=== PATIENT | female | born 1960 | race Caucasian/White ===

== ENCOUNTER 2018-07-27 02:25 | Inpatient (IN) | payer OTHER ==
[2018-07-27] VITALS (8 sets, daily range): BP systolic 117–190; BP diastolic 56–97
[~2018-07-27] VITALS: Ht 160 cm; Wt 67.4 kg
--- NOTE | ~2018-07-27 | EKG ---
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 07/27/18 0835 0234 0234 Karel Greco MD, [facility] /EPI
--- NOTE | ~2018-07-27 | EKG ---
[address] [place] [address] ELECTROCARDIOGRAM REPORT Name: ONEL FUENTES Room #: 214-P ADM IN M.R.#: [id number] Admission: 07/27/18 Attend Phys: Lucius Wagner MD Discharge: Date of : 58 Report #: [id number] THIS REPORT FOR: //name// [facility] Test Date: 2018-07-27 Test Time: 07:09:01 Pat Name: ONEL FUENTES Department: Room: 214 P Gender: F Emergency Nurse: JOSE DANIEL : 1960 Requested By: Yun Szymanski Order Number: [id number] MD: Karel Greco Measurements Intervals [place] Rate: 85 P: 55 AR: 148 QRS: -37 QRSD: 135 T: 4 QT: 407 QTc: 484 Interpretive Statements Sinus rhythm Right bundle branch block Compared to ECG 05/28/2008 09:27:17 No significant change was found Electronically Signed On 07-27-2018 8:39:05 CDT by Karel Greco [email or web address] <ELECTRONICALLY SIGNED> By: Karel Greco MD, [facility] 07/27/18 0839 8 8 Karel Greco MD, [facility] /EPI
--- NOTE | ~2018-07-27 | EKG ---
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1960 Requested By: Trace Bell Order Number: [id number] MD: Thai Aleman Measurements Intervals [place] Rate: 63 P: 73 UT: 203 QRS: -66 QRSD: 146 T: 56 QT: 505 QTc: 518 Interpretive Statements Sinus rhythm Borderline prolonged UT interval Left bundle branch block Compared to ECG 07/27/2018 07:09:01 Left bundle-branch block now present Right bundle-branch block no longer present Electronically Signed On 07-27-2018 14:08:48 CDT by Thai Aleman [email or web address] <ELECTRONICALLY SIGNED> By: Thai Aleman MD 07/27/18 1408 1225 1225 Thai Aleman MD /EPI
--- NOTE | ~2018-07-27 | 2DMMODE ---
[facility] [address] [place] [address] 2 D/M-MODE ECHOCARDIOGRAM Name: ONEL FUENTES Room #: 214-P [facility] IN ..#: [id number] Admission: 07/27/18 Attend Phys: Lucius Wagner, Discharge: Date of : 58 Date of Service: 07/27/18 1149 Report #: [id number] THIS REPORT FOR: //name// APPROVED REPORT Study performed: 07/27/2018 10:50:58 EXAM: Comprehensive 2D, Doppler, and color-flow Echocardiogram Patient Location: Bedside Room #: 214 Status: routine BSA: 1.72 HR: 78 bpm BP: 117/56 mmHg Rhythm: NSR Other Information Study Quality: Adequate Indications CAD Chest Pain Hypertension/HDD 2D Dimensions RVDd: 28.48 mm IVSd: 9.50 (7-11mm) LVOT Diam: 18.96 (18-24mm) LVDd: 36.85 mm PWd: 8.60 (7-11mm) Ascending Ao: 22.34 (22-36mm) LVDs: 28.95 (25-40mm) Aortic Root: 26.45 mm IVC: 14.00 mm Volumes Left Atrial Volume (Systole) Single Plane 4CH: 40.85 mL Single Plane 2CH: 25.36 mL LA ESV Index: 20.00 mL/m2 Aortic Valve AoV Peak Hermann.: 1.17 m/s AO Peak Gr.: 5.52 mmHg LVOT Max P.51 mmHg LVOT Max V: 0.94 m/s DEB Vmax: 2.25 cm2 Mitral Valve E/A Ratio: 0.8 [facility] [address] [place] [address] 2 D/M-MODE ECHOCARDIOGRAM Name: ONEL FUENTES Room #: 214-P [facility]#: [id number] Admission: 07/27/18 Attend Phys: Lucius Wagner, Discharge: Date of : 58 Date of Service: 07/27/18 1149 Report #: [id number] MV Decel. Time: 126.62 ms MV E Max Hermann.: 0.73 m/s MV A Hermann.: 0.97 m/s MV PHT: 36.72 ms IVRT: 110.73 ms Pulmonary Valve PV Peak Hermann.: 0.88 m/s PV Peak Gr.: 3.11 mmHg Pulmonary Vein P Vein S: 0.63 m/s P Vein A: 0.31 m/s P Vein D: 0.39 m/s P Vein A Dur.: 124.6 msec P Vein S/D Ratio: 1.62 Left Ventricle The left ventricle is normal size. There is normal LV segmental wall motion. There is normal left ventricular wall thickness. The left ventricular systolic function is normal. The left ventricular ejection fraction is within the normal range. LVEF is 55-60%. Grade I - abnormal relaxation pattern. Right Ventricle The right ventricle is normal size. The right ventricular systolic function is normal. Atria The left atrium size is normal. The right atrium size is normal. Aortic Valve The aortic valve is normal in structure. No aortic regurgitation is present. There is no aortic valvular stenosis. Mitral Valve The mitral valve is normal in structure. Trace mitral regurgitation. No evidence of mitral valve stenosis. Tricuspid Valve The tricuspid valve is normal in structure. There is no tricuspid valve regurgitation noted. Pulmonic Valve The pulmonary valve is normal in structure. There is no pulmonic valvular regurgitation. Great Vessels [facility] [address] [place] [address] 2 D/M-MODE ECHOCARDIOGRAM Name: ONEL FUENTES Room #: 214-P [facility] IN ..#: [id number] Admission: 07/27/18 Attend Phys: Lucius Wagner, Discharge: Date of : 58 Date of Service: 07/27/18 1149 Report #: [id number] The aortic root is normal in size. IVC is normal in size and collapses >50% with inspiration. Pericardium There is no pericardial effusion. <Conclusion> The left ventricle is normal size. LVEF is 55-60%. The aortic valve is normal in structure. The mitral valve is normal in structure. Trace mitral regurgitation. The tricuspid valve is normal in structure. The pulmonary valve is normal in structure. There is no pericardial effusion. <ELECTRONICALLY SIGNED> By: Trace Bell MD 07/27/18 1149 1149 114 Trace Bell MD /INF
--- NOTE | ~2018-07-27 | EKG ---
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
[~2018-07-27 02:25] MED LIST: BACTRIM DS TAB1 EACH PO; BACTROBAN NASAL1 GM NS; CELEXA 20 MG TA20 M1 PO; DOXYCYCLINE 10100 MG PO; HYDROXYZINE HCL25 M1 PO; NITROQUICK0.4 MG SL; OXCARBAZEPINE600 MG PO; PREDNISONE 20 M20 M1 PO; SIMVASTATIN80 MG PO; TOPROL XL25 MG PO; ZESTRIL10 MG PO
[2018-07-27 02:53] LABS: ABSOLUTE NEUTROPHILS 3.5 thou/uL (1.4-8.2); BASOPHILS 2.4 % (0.0-2.0); EOSINOPHILS 4.5 % (0.0-3.0); HEMATOCRIT 42.4 % (37.0-47.0); HEMOGLOBIN 14.4 gm/dL (12.0-15.0); LYMPHOCYTES 42.8 % (24.0-44.0); MCH 30.2 pg (26.0-34.0); MCHC 33.9 g/dL (28.0-37.0); MCV 88.9 fL (80.0-100.0); MONOCYTES 7.2 % (1.0-8.0); PLATELET COUNT 400 thou/uL (150-400); POLYS 43.1 % (36.0-66.0); RBC 4.77 mil/uL (4.20-5.00); WBC 8.2 thou/uL (4.0-11.0)
[2018-07-27 03:02] LABS: ANION GAP 13 mmol/L (7-16); BUN 9 mg/dL (7-18); CALCIUM 8.7 mg/dL (8.5-10.1); CHLORIDE 103 mmol/L (98-107); CO2 24 mmol/L (21-32); CREATININE 0.7 mg/dL (0.6-1.0); GLUCOSE 114 mg/dL (74-106); POTASSIUM 3.6 mmol/L (3.5-5.1); SODIUM 140 mmol/L (136-145)
[2018-07-27 03:09] LABS: ALBUMIN 3.7 g/dL (3.4-5.0); SGOT 32 U/L (15-37); SGPT 47 U/L (30-65); TOTAL BILIRUBIN 0.3 mg/dL (<0.1-1.0); TOTAL PROTEIN 7.7 g/dL (6.4-8.2); TROPONIN-I <0.06 ng/mL (<0.06)
[2018-07-27 08:59] LABS: CHOLESTEROL 213 mg/dL (<200); HDL CHOLESTEROL 45 mg/dL (>40); LDL CHOLESTEROL 143 mg/dL (<100); TC:HDL 4.7 Ratio (Not establshd); TRIGLYCERIDE 127 mg/dL (<150); VLDL 25 mg/dL (<40)
[2018-07-27 23:07] LABS: GLYCOHEMOGLOBIN (HGB A1C) 5.7 % (4.8-5.6)
[2018-07-28 04:37] LABS: HEMATOCRIT 41.1 % (37.0-47.0); HEMOGLOBIN 13.9 gm/dL (12.0-15.0); MCH 29.9 pg (26.0-34.0); MCHC 33.8 g/dL (28.0-37.0); MCV 88.7 fL (80.0-100.0); RBC 4.63 mil/uL (4.20-5.00); RDW 13.4 % (10.5-14.5); WBC 9.8 thou/uL (4.0-11.0)
[2018-07-28 04:42] VITALS: BP 130/70
[2018-07-28 04:57] LABS: ALBUMIN 3.3 g/dL (3.4-5.0); CALCIUM 9.2 mg/dL (8.5-10.1); CREATININE 0.6 mg/dL (0.6-1.0); POTASSIUM 3.9 mmol/L (3.5-5.1); TOTAL BILIRUBIN 0.5 mg/dL (<0.1-1.0); TOTAL PROTEIN 7.4 g/dL (6.4-8.2)
[2018-07-28 07:47] VITALS: BP 103/47
[2018-07-28] MEDS ORDERED: CRESTOR40 MG PO ×2 (08:52→11:17)
[2018-07-28] MEDS ORDERED: ASPIRIN325 PO (08:52)
[2018-07-28] MEDS ORDERED: NITROGLYCERIN0.4 MG SUBLING ×2 (08:52→11:17)
[2018-07-28] MEDS ORDERED: EFFIENT10 MG PO (08:52)
[2018-07-28] MEDS ORDERED: TOPROL XL25 MG PO ×2 (08:52→11:17)
[2018-07-28 11:11] VITALS: BP 141/74
[2018-07-28] MEDS ORDERED: NICOTINE TRANSD14 M1 TRANSDERM (11:16)
[2018-07-28] MEDS ORDERED: PLAVIX 75 MG TA75 M1 PO (11:16)
[2018-07-28] MEDS ORDERED: ASPIR 8181 MG PO (11:24)
[2018-07-28 11:31] VITALS: BP 141/74
[2018-07-28] MEDS ORDERED: LISINOPRIL2.5 MG PO (11:58)
== END 2018-07-28 13:30 | disposition home or self-care (01) | DRG 247 ==
LOC: ER 02:25 → EROBS 03:28 → 2N 04:00
PROVIDERS: Internal Medicine; Nurse Practitioner Acute Care; Student in an Organized Health Care Education/Training Program
PROC: B2111ZZ Fluoroscopy of Multiple Coronary Arteries using Low Osmolar Contrast (ICD-10-PCS; principal; 2018-07-27)
PROC: 4A023N7 Measurement of Cardiac Sampling and Pressure, Left Heart, Percutaneous Approach (ICD-10-PCS; principal; 2018-07-27)
PROC: 027034Z Dilation of Coronary Artery, One Artery with Drug-eluting Intraluminal Device, Percutaneous Approach (ICD-10-PCS; principal; 2018-07-27)
DX: T82.855A Stenosis of coronary artery stent, initial encounter (principal); I25.110 Atherosclerotic heart disease of native coronary artery with unstable angina pectoris; E78.5 Hyperlipidemia, unspecified; F17.210 Nicotine dependence, cigarettes, uncomplicated; I73.9 Peripheral vascular disease, unspecified; I16.0 Hypertensive urgency; I10 Essential (primary) hypertension; Z95.820 Peripheral vascular angioplasty status with implants and grafts; Y83.8 Other surgical procedures as the cause of abnormal reaction of the patient, or of later complication, without mention of misadventure at the time of the procedure; Y92.89 Other specified places as the place of occurrence of the external cause; Z88.6 Allergy status to analgesic agent; Z82.49 Family history of ischemic heart disease and other diseases of the circulatory system; Z82.3 Family history of stroke; Z87.442 Personal history of urinary calculi; Z95.5 Presence of coronary angioplasty implant and graft; Z79.82 Long term (current) use of aspirin; Z79.899 Other long term (current) drug therapy; Z23 Encounter for immunization
CPT/HCPCS: 10081

== ENCOUNTER 2018-08-01 18:43 | Emergency (ER) | payer OTHER ==
[~2018-08-01] VITALS: Ht 157.5 cm; Wt 65.8 kg
--- NOTE | ~2018-08-01 | EKG ---
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1960 Requested By: Misael Amanda Order Number: [id number] MD: Thai Aleman Measurements Intervals [place] Rate: 100 P: 48 PA: 158 QRS: -44 QRSD: 132 T: 18 QT: 388 QTc: 501 Interpretive Statements Sinus tachycardia RBBB and LAFB Compared to ECG 07/27/2018 12:25:22 Left anterior fascicular block now present Right bundle-branch block now present Sinus rhythm no longer present Left bundle-branch block no longer present Electronically Signed On 08-02-2018 8:35:05 CDT by Thai Aleman [email or web address] <ELECTRONICALLY SIGNED> By: Thai Aleman MD 08/02/18 0835 00 00 Thai Aleman MD /EPI
[~2018-08-01 18:43] MED LIST changes: +ASPIR 8181 MG PO; +ASPIRIN325 PO; +CRESTOR40 MG PO; +EFFIENT10 MG PO; +LISINOPRIL2.5 MG PO; +NICOTINE TRANSD14 M1 TRANSDERM; +NITROGLYCERIN0.4 MG SUBLING; +PLAVIX 75 MG TA75 M1 PO
[2018-08-01] MEDS ORDERED: EFFIENT10 MG PO (19:21)
[2018-08-01 19:29] LABS: URINE BILIRUBIN NEGATIVE (Negative); URINE BLOOD NEGATIVE (Negative); URINE CLARITY CLEAR; URINE COLOR YELLOW; URINE GLUCOSE-RANDOM* NEGATIVE (Negative); URINE KETONES NEGATIVE (Negative); URINE LEUKOCYTES-REFLEX NEGATIVE (Negative); URINE NITRITE-REFLEX NEGATIVE (Negative); URINE PROTEIN (DIPSTICK) NEGATIVE (Negative)
[2018-08-01 19:32] LABS: ABSOLUTE NEUTROPHILS 5.8 thou/uL (1.4-8.2); BASOPHILS 0.3 % (0.0-2.0); EOSINOPHILS 3.5 % (0.0-3.0); HEMATOCRIT 39.1 % (37.0-47.0); HEMOGLOBIN 13.5 gm/dL (12.0-15.0); LYMPHOCYTES 31.7 % (24.0-44.0); MCH 30.3 pg (26.0-34.0); MCHC 34.6 g/dL (28.0-37.0); MCV 87.6 fL (80.0-100.0); MONOCYTES 7.5 % (1.0-8.0); PLATELET COUNT 395 thou/uL (150-400); RBC 4.47 mil/uL (4.20-5.00); RDW 12.8 % (10.5-14.5); WBC 10.2 thou/uL (4.0-11.0)
[2018-08-01 19:54] LABS: ANION GAP 10 mmol/L (7-16); BUN 10 mg/dL (7-18); CALCIUM 9.3 mg/dL (8.5-10.1); CHLORIDE 104 mmol/L (98-107); CO2 27 mmol/L (21-32); CREATININE 0.7 mg/dL (0.6-1.0); GLUCOSE 122 mg/dL (74-106); POTASSIUM 3.4 mmol/L (3.5-5.1); SODIUM 141 mmol/L (136-145)
[2018-08-01 20:00] LABS: ALBUMIN 3.4 g/dL (3.4-5.0); SGOT 21 U/L (15-37); SGPT 31 U/L (30-65); TOTAL BILIRUBIN 0.3 mg/dL (<0.1-1.0); TOTAL PROTEIN 7.5 g/dL (6.4-8.2); TROPONIN-I <0.06 ng/mL (<0.06)
[2018-08-01] MEDS ORDERED: ANTIVERT25 MG PO (22:16)
[2018-08-01] MEDS ORDERED: ZOFRAN ODT4 MG DISSOLVE (22:16)
[2018-08-01] MEDS ORDERED: ATIVAN0.5 MG PO (22:19)
[2018-08-01 22:49] VITALS: BP 150/82
== END 2018-08-01 22:50 | disposition home or self-care (01) ==
LOC: ER 18:43
PROVIDERS: Emergency Medicine
DX: I25.10 Atherosclerotic heart disease of native coronary artery without angina pectoris (principal); R55 Syncope and collapse; F41.9 Anxiety disorder, unspecified; M79.81 Nontraumatic hematoma of soft tissue; F17.210 Nicotine dependence, cigarettes, uncomplicated; E78.5 Hyperlipidemia, unspecified; I10 Essential (primary) hypertension; Z88.5 Allergy status to narcotic agent; Z98.61 Coronary angioplasty status

== ENCOUNTER → 2019-07-15 | Outpatient (CLI) | payer OTHER ==
[~2019-07-15] VITALS: Ht 160 cm; Wt 68.0 kg
[~2019-07-15] MED LIST changes: +ANTIVERT25 MG PO; +ATIVAN0.5 MG PO; +CREON DR 24,001 EACH PO; +LEXAPRO 10 MG T10 M1 PO; +LOPRESSOR25 PO; +ZOFRAN ODT4 MG DISSOLVE
--- NOTE | 2019-07-17 11:07 | PATH ---
[facility] [address] [address] PATHOLOGY RPT PROCEDURE Name: ZAINAB AYOUB Room #: REG [facility] Cory.#: [id number] Admission: 07/15/19 Date of : 58 Discharge: Report #: [id number] Path Case #: [id number] [facility] Accession Number: [id number] . 01 Material submitted: . PART A: small bowel - SMALL BOWEL BX PART B: colon - RANDOM RIGHT COLON BX. Modifiers: right PART C: colon - RANDOM LEFT COLON BX. Modifiers: left PART D: sigmoid colon - SIGMOID COLON POLYP . 01 Clinical history: . GERD, diarrhea, nausea Rule out celiac, rule out microscopic colitis . 02 Diagnosis: A. Small bowel mucosa, small bowel rule out celiac, endoscopic biopsy: - Moderate acute and chronic duodenitis associated with fundic-type metaplasia and mild villous blunting, compatible with active peptic duodenitis. . B. Large intestine mucosa, random right colon, endoscopic biopsy: - Focal acute cryptitis associated with apoptotic bodies. - Negative for features suggestive of microscopic colitis. - Negative for dysplasia or malignancy. . C. Large intestinal mucosa, random left colon, endoscopic biopsy: - Mild focal acute colitis. - Negative for features suggestive of microscopic colitis. - Negative for dysplasia or malignancy. . D. Polyp, sigmoid colon polyp, endoscopic biopsy: - Compatible with hyperplastic polyp and a lymphoid aggregate. - Negative for dysplasia. . 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 02 Comment: Sections of the colonic mucosa designated "random right colon and random left colon" show focal cryptitis, and a moderately cellular lamina propria composed predominantly of lymphocytes and plasma cells and occasional eosinophils. Surface ulceration is not identified. There are no crypt abscesses, granulomas or viral inclusions. The process affects all the fragments with a similar intensity. Given the description, the differential diagnosis includes focal mild acute self-limited episode of colitis, infectious-type of colitis, reaction to bowel preparation, medication/drug-induced colitis, as well as acute diverticulitis. Please [address] [address] PATHOLOGY RPT PROCEDURE Name: ZAINAB AYOUB Room #: REG TAHIRA Hong#: [id number] Admission: 07/15/19 Date of : 58 Discharge: Report #: [id number] Path Case #: [id number] correlate with clinical as well as endoscopic findings. (IUV:olaf; 07/16/2019) . 02 Electronically signed: . Thea Vallejo MD, Pathologist NPI- [id number] . 01 Gross description: . A. Received in formalin labeled "Zainab Ayoub, small bowel BX," are 4 segments of urban soft tissue measuring 1.1 x 0.9 x 0.3 cm in aggregate dimensions and ranging from 0.2 to 0.5 cm in maximum dimension. The specimen is submitted entirely in cassette A1. . B. Received in formalin labeled "Zainab Ayoub, random right colon BX," are 4 segments of urban soft tissue measuring 1.1 x 0.8 x 0.3 cm in aggregate dimensions and ranging from 0.3 to 0.5 cm in maximum dimension. The specimen is submitted entirely in cassette B1. . C. Received in formalin labeled "Zainab Ayoub, random left colon BX," are 4 segments of urban soft tissue measuring 1.1 x 0.9 x 0.3 cm in aggregate dimensions and ranging from 0.4 to 0.5 cm in maximum dimension. The specimen is submitted entirely in cassette C1. . D. Received in formalin labeled "Zainab Ayoub, sigmoid colon polyp," is a single segment of urban soft tissue measuring 0.8 cm in maximum dimension. The specimen is entirely submitted in cassette D1. (TSD; 07/15/2019) TOB/TOB 07/16/2019 1508 Local . 02 Pathologist provided ICD-10: K29.80, K29.80, K62.89, K63.5 . 02 CPT . 461057, 551459, 175729, 037323 Specimen Comment: A courtesy copy of this report has been sent to Specimen Comment: [phone], . Specimen Comment: Report sent to / DR LUX Specimen Comment: A duplicate report has been generated due to demographic updates. Performed at: [address], [place], [place] [id number] MD Sajan Nails MD Phone: [phone] Performed at: [address] [id number] MD Thea Vallejo MD Phone: [phone]
== END | disposition home or self-care (01) ==
LOC: GI 07:25
DX: K52.9 Noninfective gastroenteritis and colitis, unspecified (principal); K62.89 Other specified diseases of anus and rectum; K63.5 Polyp of colon; K29.80 Duodenitis without bleeding; K44.9 Diaphragmatic hernia without obstruction or gangrene; I10 Essential (primary) hypertension; E78.5 Hyperlipidemia, unspecified; E78.00 Pure hypercholesterolemia, unspecified; I73.9 Peripheral vascular disease, unspecified; J44.9 Chronic obstructive pulmonary disease, unspecified; F32.9 Major depressive disorder, single episode, unspecified; F41.9 Anxiety disorder, unspecified; K21.9 Gastro-esophageal reflux disease without esophagitis; F17.210 Nicotine dependence, cigarettes, uncomplicated; Z87.442 Personal history of urinary calculi; Z98.51 Tubal ligation status; Z88.8 Allergy status to other drugs, medicaments and biological substances; Z98.890 Other specified postprocedural states; Z79.899 Other long term (current) drug therapy
CPT/HCPCS: 62110; 62900

== ENCOUNTER → 2019-07-17 | Outpatient (CLI) | payer OTHER | LOC: MRI 06:59 | DX: N28.1 Cyst of kidney, acquired (principal); K44.9 Diaphragmatic hernia without obstruction or gangrene; K86.81 Exocrine pancreatic insufficiency ==